=== PATIENT | female | born 1950 | race Caucasian/White ===

== ENCOUNTER 2017-05-26 07:26 | Day surgery (SDC) | payer BC, MEDICARE ==
[2017-05-26] MEDS ORDERED: LIDOCAINE HCL 1% MPF SOL ONE (08:00)
[2017-05-26] MEDS ORDERED: PROPOFOL 500 MG/50 ML EMU IV ONE (08:00)
[2017-05-26] MEDS ORDERED: FENTANYL 100MCG/2ML SOL ONE (08:00)
[2017-05-26] MEDS: BUPIVACAINE/EPI 0.5% 10 ML SOL INFIL ONE ×2 (09:02→09:27)
[2017-05-26 11:48] VITALS: BP 115/70; PULSE 60; RESP 18; TEMP 97.2; O2SAT 96
== END 2017-05-26 10:17 | disposition home or self-care (01) ==
LOC: SURG 07:26
PROVIDERS: ATTEND Surgery
DX: D17.1 Benign lipomatous neoplasm of skin and subcutaneous tissue of trunk (principal); D17.22 Benign lipomatous neoplasm of skin and subcutaneous tissue of left arm
CPT/HCPCS: 21931; 24071; 99001; J2001; J2704; J3010; A6402

== ENCOUNTER 2017-07-04 19:02 | Emergency (ER) | payer BC, MEDICARE ==
[2017-07-04 19:54] VITALS: BP 152/81; PULSE 83; TEMP 99; O2SAT 97
[2017-07-04 20:56] VITALS: RESP 16
== END 2017-07-04 20:50 | disposition home or self-care (01) ==
LOC: ED 19:02
DX: S52.571A Other intraarticular fracture of lower end of right radius, initial encounter for closed fracture (principal); W11.XXXA Fall on and from ladder, initial encounter
CPT/HCPCS: 29125; 73110; 99283